=== PATIENT | male | born 1980 ===

== ENCOUNTER 2020-05-29 15:35 | Outpatient (CLI) | payer OTHER, SELFPAY ==
--- NOTE | 2020-05-29 15:41 | XR_ITS ---
WS: [id number] THORACIC SPINE TECHNIQUE: 3 views of the thoracic spine CLINICAL INFORMATION: BACK PAIN DUE TO INJURY COMPARISON: None. FINDINGS: Mild thoracic curve. Mild anterior wedging in the upper thoracic spine at approximately T5, T6, T7. T his is age indeterminate. This can be further evaluated with CT or MRI. No other significant findings . XR/XR thoracic spine 2V 11373 IMPRESSION: 1. Mild compression of the superior endplates at approximately T5-T7. This is age indeterminant but may be chronic. This can be further evaluated with CT or MRI. 2. No other significant findings.
--- NOTE | 2020-05-29 15:41 | XR_ITS ---
WS: [id number] LUMBAR SPINE FLEXION AND EXTENSION TECHNIQUE: 3 views of the lumbar spine: Lateral neutral, flexion, and extension views. CLINICAL INFORMATION: BACK PAIN DUE TO INJURY COMPARISON: None. FINDINGS: Slight retrolisthesis L3 on L4 and L4 on L5. Disc space narrowing worse L5-S1. No instability on flex ion-extension. Disc space narrowing worse L5-S1. XR/XR lumbar spine f/e only [id number] IMPRESSION: No instability on flexion-extension.
== END 2020-05-29 15:36 | disposition home or self-care (01) ==
LOC: RADWPI 15:40
PROVIDERS: PCP Nurse Practitioner Family; Visit Provider Nurse Practitioner Family
DX: M54.6 Pain in thoracic spine (principal); M54.5 Low back pain; S39.92XA Unspecified injury of lower back, initial encounter; X58.XXXA Exposure to other specified factors, initial encounter
CPT/HCPCS: 72070; 72120

== ENCOUNTER 2020-08-13 09:02 | Emergency (ER) | payer OTHER, SELFPAY ==
[2020-08-13 09:18] VITALS: BP 131/91; PULSE 87; RESP 18; TEMP 36.7; O2SAT 99; BMI 21.5
--- NOTE | 2020-08-13 09:40 | ED_ITS ---
HPI - Skin/Abscess/Foreign Bdy General: Chief complaint: Allergic Reaction Stated complaint: DIFFICULTY BREATHING, SUSPECTS ALLERGIC REACTION Time Seen by Provider: 08/13/20 09:25 Source: patient Mode of arrival: ambulatory Limitations: no limitations History of Present Illness: HPI narrative: Patient is a 40-year-old male who presents to ED today along with his significant other for complaints of a pruritic rash that has been present for a few months. Patient tells me he initially noticed the rash on his bilateral dorsal hands. He states since then the rash has spread up his arms, along his flanks, and over his thighs. He states rash is extremely pruritic worse with heat. He has been seen twice for the rash and given steroid creams which are not helping. He has no other physical complaints. Patient was triaged as an allergic reaction stating that he was having difficulty breathing. He states at work the pruritus became so intense that he could feel himself getting worked up . He has absolutely no complaints now of difficulty breathing or trouble swallowing. MD complaint: rash Onset (ago): month(s) Tetanus up to date: yes Location: generalized Quality: pruritic Pain Consistency: constant Relieving factors: none Exacerbating factors: other (heat/shower ) Context: none Associated symptoms: Reports no associated symptoms; Deny chills, fever(s), nausea or vomiting Treatments prior to arrival: corticosteroid Review of Systems Const: Denies: fever(s) or chills Eyes: Denies: change in vision ENMT: Denies: throat pain Card: Denies: chest pain Resp: Denies: dyspnea GI: Denies: nausea or vomiting Musc: Denies: neck pain Skin/Breast: Reports: rash and pruritus Neuro: Denies: headache(s), numbness in extremities, weakness in extremities, sensory changes or dizziness PFSH ED PFSH: Social History Smoking and tobacco status: current every day smoker Physical Exam Const: COMMON NORMALS: no acute distress, average body habitus, patient oriented x3, no limitations, healthy appearing, alert and well nourished GEN ERAL APPEARANCE: cooperative ORIENTATION/CONSCIOUSNESS: Yes awake, Yes oriented to person, Yes oriented to place and Yes oriented to time HENMT: COMMON NORMALS: normocephalic and atraumatic HEAD & SCALP: normocephalic and atraumatic MOUTH: Normal oral and palatal mucosa present, lip normal, tongue normal and other (no angioedema) Resp: COMMON NORMALS: normal respiratory effort and clear to auscultation bilaterally AUSCULTATION: clear to auscultation bilaterally Cardio: COMMON NORMALS: regular rate and regular rhythm RATE: regular rate RHYTHM: regular rhythm Extremity: COMMON NORMALS: normal to inspection Neuro: COMMON NORMALS: patient oriented x3 SENSORIUM/ORIENTATION: Yes alert, Yes oriented to person, Yes oriented to place and Yes oriented to time Skin: NARRATIVE SKIN EXAM: patient has excoriated lesion to bilateral dorsal hands; lesions do seem to track up his forearms; he has newer more papular like lesions to bilateral lateral abdomen; he has more excoriated lesions to bilateral posterior thighs Course Vital Signs: Vital signs: Vital Signs Temperature 98.1 F 08/13/20 09:18 Pulse Rate 87 08/13/20 09:18 Respiratory Rate 18 08/13/20 09:18 Blood Pressure 131/91 08/13/20 09:18 Pulse Oximetry 99 08/13/20 09:18 MDM - Skin/Abscess/Foreign Bdy 2 MDM Narrative: Medical decision making narrative: Lesions and pts history are suspicious for scabies. Will go ahead and try treatment of permethrin and monitor for results. Recommend re-evaluation in 2 weeks if no improvement. Return to ED precautions given. Discharge Plan Discharge Patient Disposition: Home Clinical Impression: Scabies Condition: Stable Prescriptions: New permethrin 5 % cream 1 applic topical Q14D Qty: 60 RF: 1 Discharge Orders: Discharge ED (Routine); Ordered 08/13/20 Ordered By: Ashley Vázquez Referrals: Lorrie Toledo NP [Primary Care Provider] - Patient Instructions: Scabies (ED), Scabies - Adult Coding Level of Care Code ED Case Resolution Specialist for Morteza Yip
[2020-08-13 10:01] VITALS: RESP 18; TEMP 36.7; O2SAT 99
[2020-08-13 10:18] VITALS: BP 125/85; PULSE 88; RESP 18; TEMP 36.7; O2SAT 99
== END 2020-08-13 10:02 | disposition home or self-care (01) ==
PROVIDERS: Emergency Provider Physician Assistant; PCP Nurse Practitioner Family
DX: B86 Scabies (principal); F17.210 Nicotine dependence, cigarettes, uncomplicated
CPT/HCPCS: 99281

== ENCOUNTER 2020-10-04 15:16 | Outpatient (CLI) | payer OTHER, SELFPAY ==
--- NOTE | 2020-10-04 15:23 | XR_ITS ---
WS: [id number] LUMBAR SPINE TECHNIQUE: 3 views of the lumbar spine CLINICAL INFORMATION: LUMBAR PAIN COMPARISON: None. FINDINGS: Five [id number] lumbar vertebral bodies. Mild lumbar curve convex right. Disc space narrowing wo rse L5-S1. Chronic anterior wedging L5 unchanged since May 29, 2020. Mild facet arthropathy L5-S1 . Vascular calcification. XR/XR lumbar spine 2-3V* [id number] IMPRESSION: 1. Mild lumbar curve convex right. 2. Disc space narrowing worse L5-S1. 3. Mild facet arthropathy L5-S1. 4. No significant changes since May 29, 2020
== END 2020-10-04 15:17 | disposition home or self-care (01) ==
PROVIDERS: PCP Nurse Practitioner Family; Visit Provider Registered Nurse
DX: M54.5 Low back pain (principal)
CPT/HCPCS: 72100

== ENCOUNTER 2021-04-24 16:25 | Emergency (ER) | payer SELFPAY ==
[2021-04-24 16:37] VITALS: BP 134/84; PULSE 90; RESP 16; TEMP 36.4; O2SAT 99
[2021-04-24 16:51] VITALS: BP 134/84; PULSE 90; RESP 16; O2SAT 100
--- NOTE | 2021-04-24 17:10 | XRR_ITS ---
PROCEDURE INFORMATION: Exam: XR Left Hand Exam date and time: 04/24/2021 5:10 PM Age: 40 years old Clinical indication: Injury or trauma; Other: Dog bite; Hand; Left TECHNIQUE: Imaging protocol: XR Left hand. Views: 3 or more views. COMPARISON: No relevant prior studies available. FINDINGS: Bones/joints: The patient's fingers are partially bent, which can limit evaluation. There is otherwise no evidence for acute fracture. No dislocation. Normal bone mineralization. No joint effusion. Joint spaces are maintained. Soft tissues: No soft tissue swelling. No radiopaque foreign body. XR/XR hand LT min 3V* [id number] IMPRESSION: The patient's fingers are partially bent, which can limit evaluation. There is otherwise no evidence for acute fracture. Followup imaging recommended in 7-14 days if clinical concern for fracture persists.
[2021-04-24] MEDS: tetanus-dipt-pertussis 0.5 mL SDV IM (17:16)
--- NOTE | 2021-04-24 17:16 | W.ED.ANIMALB ---
HPI - Animal Bite General: Chief Complaint: Animal Bite Stated Complaint: L HAND INJURY Time Seen by Provider: 04/24/21 17:11 History of Present Illness: HPI narrative: Patient complains left hand injury dog bite earlier today. Patient says dog clamped on his fingers and he pulled his fingers out of the mouth and has fingers apart since then. Rabies is up to date on vaccination for the dog. Patient is in need of tetanus update. MD complaint: animal bite Onset (ago): minute(s) Animal: dog Description of animal: household pet Mechanism: bite Location - Extremities: Left: hand Pain description: dull Severity scale (1-10): 4 Context: playing with animal Associated symptoms: Reports no associated symptoms; Deny chills, fever(s) or headache(s) Review of Systems Const: Denies: fever(s), chills or body aches Eyes: Denies: change in vision or blurry vision ENMT: Denies: throat pain or nasal congestion Card: Denies: chest pain or dyspnea on exertion Resp: Denies: dyspnea, productive cough or non-productive cough GI: Denies: abdominal pain, nausea or vomiting : Denies: difficulty urinating Musc: Reports: extremity pain (#3. And #5 fingers of left hand hurt from dog bite earlier today) Skin/Breast: Denies: rash Neuro: Denies: headache(s) Psych: Denies: anxiety or depression Adonay/Lymph: Denies: easy bruising COUNT INCLUDES THE [facility] ED PFSH: Social History Smoking and tobacco status: current every day smoker Physical Exam Const: COMMON NORMALS: no acute distress GENERAL APPEARANCE: cooperative Extremity: LEFT UPPER EXTREMITY: Yes hand & digits (Patient has tenderness #5 finger with touching distal aspect and he complai) Left hand and digits: Yes inspection (Puncture wound top left #4 PIP area no bleeding), Yes palpation (Pain), Yes ROM (Decreased) and Yes other (Pain to flexor tendon base of finger) Psych: COMMON NORMALS: mental status grossly normal ATTITUDE: Yes calm Skin: OTHER: Puncture wound dorsal aspect left #4 finger near the base Course Vital Signs: Vital signs: Vital Signs Temperature 97.6 F 04/24/21 16:37 Pulse Rate 90 04/24/21 16:51 Respiratory Rate 16 04/24/21 16:51 Blood Pressure 134/84 04/24/21 16:51 Pulse Oximetry 100 04/24/21 16:51 Discharge Plan Discharge Prescriptions: No Action prednisone 20 mg tablet See Rx Instructions PO DAILY 11 Days Qty: 19 RF: 0 Coding Level of Care Code ED Qualification Engineer for Morteza Yip
[2021-04-24] MEDS: cephALEXin 500 mg Capsule PO (17:50)
== END 2021-04-24 18:25 | disposition home or self-care (01) ==
PROVIDERS: Emergency Provider Nurse Practitioner Family
DX: S61.452A Open bite of left hand, initial encounter (principal); W54.0XXA Bitten by dog, initial encounter; F17.210 Nicotine dependence, cigarettes, uncomplicated; Z23 Encounter for immunization
CPT/HCPCS: 73130; 90471; 90715; 99283

== ENCOUNTER 2021-06-05 16:12 | Emergency (ER) | payer SELFPAY ==
[2021-06-05 16:25] VITALS: BP 148/102; PULSE 82; RESP 16; TEMP 36.8; O2SAT 99
--- NOTE | 2021-06-05 17:54 | ECG_ITS ---
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 Measurements Intervals [place] Rate: 79 P: 53 [place]: 126 QRS: 76 QRSD: 85 T: 62 QT: 334 QTc: 383 Interpretive Statements SINUS RHYTHM No previous ECG available for comparison Electronically Signed On 06-05-2021 21:56:42 COMMERCIAL SHRIMPING CAPTAIN by Rachelle Ortega M.D. [id number]
== END 2021-06-05 21:03 | disposition left against medical advice (07) ==
PROVIDERS: Emergency Provider Family Medicine
DX: Z53.21 Procedure and treatment not carried out due to patient leaving prior to being seen by health care provider (principal)
CPT/HCPCS: 93005

== ENCOUNTER → 2024-02-16 10:20 | Outpatient (BNVA) | payer OTHER, SELFPAY | PROVIDERS: Visit Provider Family Medicine | DX: S99.921A Unspecified injury of right foot, initial encounter (principal); M79.674 Pain in right toe(s); X58.XXXA Exposure to other specified factors, initial encounter | CPT/HCPCS: 73630 ==

== ENCOUNTER 2024-05-14 15:27 | Emergency (ER) | payer SELFPAY ==
[2024-05-14 15:33] VITALS: BP 164/98; PULSE 74; RESP 17; O2SAT 99; BMI 21.5
--- NOTE | 2024-05-14 15:36 | ECG_ITS ---
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 Measurements Intervals [place] Rate: 76 P: 76 [place]: 164 QRS: 79 QRSD: 89 T: 68 QT: 379 QTc: 429 Interpretive Statements SINUS RHYTHM Compared to ECG 06/05/2021 16:24:11 No significant changes Electronically Signed On 05-15-2024 17:12:06 STEWARD RACETRACK by Prema Washburn M.D. [id number]
--- NOTE | 2024-05-14 15:54 | ED_ITS ---
HPI - SOB/Dyspnea 2 General: Chief Complaint: Shortness of Breath/Dyspnea Stated Complaint: sob Time Seen by Provider: 05/14/24 15:41 History of Present Illness: HPI Narrative: 43-year-old man with no significant past medical history presents emergency room with shortness of breath and fatigue that came on suddenly. thinks he might be having allergic reaction. She says he was drinking with family and had a couple of beers. He then had some sort of flavored drink and shortly after he became very short of breath. Purcell like his throat was closing. No chest pain. Had some nausea but no vomiting. He says he now is breathing better but feels very fatigued. Possibly some mild scattered erythema. No obvious hives. Related Data Previous Rx's Medication Instructions Recorded prednisone 20 mg tablet 60 mg (3 x 20 mg) PO DAILY 5 days 05/14/24 #15 tabs Allergies Allergy/AdvReac Type Severity Reaction Status Date / Time jalapenos Allergy ALGY-Anaphy Uncoded 02/16/24 10:14 laxis Review of Systems 2 Narrative: Constitutional symptoms: Negative except as documented in HPI. Skin symptoms: Negative except as documented in HPI. Eye symptoms: Negative except as documented in HPI. ENMT symptoms: Negative except as documented in HPI. Respiratory symptoms: Negative except as documented in HPI. Cardiovascular symptoms: Negative except as documented in HPI. Gastrointestinal symptoms: Negative except as documented in HPI. Genitourinary symptoms: Negative except as documented in HPI. Musculoskeletal symptoms: Negative except as documented in HPI. Neurologic symptoms: Negative except as documented in HPI. Psychiatric symptoms: Negative except as documented in HPI. Endocrine symptoms: Negative except as documented in HPI. PFSH ED 2 PFSH: Social History Smoking and tobacco/nicotine status: current every day tobacco/nicotine user Physical Exam 2 Narrative: EXAM NARRATIVE: General: Alert, no acute distress. Skin: Warm, dry. Head: Normocephalic, atraumatic. Neck: Supple, trachea midline. Eye: Extraocular movements are intact. Ears, nose, mouth and throat: mucosa moist. Cardiovascular: Regular, Normal peripheral perfusion. Respiratory: Lungs are clear to auscultation, respirations are non-labored, breath sounds are equal, Symmetrical chest wall expansion. Gastrointestinal: Soft, Nontender, Non distended Musculoskeletal: Normal ROM, no deformity. Neurological: Alert and oriented, No focal neurological deficit observed. Psychiatric: Cooperative, appropriate mood & affect. Course 2 Vital Signs: Vital signs: Vital Signs Pulse Rate 71 05/14/24 16:06 Respiratory Rate 16 05/14/24 16:06 Blood Pressure 151/94 05/14/24 16:06 Pulse Oximetry 99 05/14/24 16:06 Oxygen Delivery Me thod Room Air 05/14/24 16:06 MDM - SOB/Dyspnea Medical Decision Making Medical decision making: Differential diagnosis including but not limited to and based on the above HPI, review of systems and physical exam: In a patient with complaints of allergic reaction have concern for anaphylaxis, medication reactions and viral reactions. Orders placed to evaluate differential diagnosis based on the above differential, HPI and physical exam EKG: Time 1536. Rate 76. Normal sinus rhythm, No ST-T changes, no ectopy, normal MA & QRS intervals, This was reviewed and interpreted by myself the ER physician at 1540. Lab Review: Laboratory results were reviewed and interpreted by myself the emergency room physician. Lab work is fairly unremarkable. Other than alcohol level is 90. Lactic acid is slightly elevated at 4 which is likely secondary to the alcohol metabolism. I reviewed the patient's medical record. Reexamination: Patient is quite a bit improved. Assessment and plan: Allergic reaction ?Solu-Medrol, Benadryl and Pepcid in the emergency room - Discharged home - Discussed plan with patient. Answered any questions. - Evaluation and treatment of this problem were appropriate in the emergency setting. Lab Data 05/14/24 16:02 05/14/24 16:02 Labs/Radiology: Laboratory Results WBC 9.08 10^3/uL (3.29-11.43) 05/14/24 16:02 RBC 5.23 10^6/uL (3.85-5.65) 05/14/24 16:02 Hgb 16.80 g/dL (11.27-16.99) 05/14/24 16:02 Hct 47.9 % (37-53) 05/14/24 16:02 MCV 91.6 fl (82-101) 05/14/24 16: MCH 32.1 pg (27-33) 05/14/24 16: MCHC 35.1 g/dL (30-55) 05/14/24 16:02 RDW 12.0 % (12.1-15.1) L 05/14/24 16:02 Plt Count 252 10^3/cmm (157-399) 05/14/24 16:02 MPV 10.1 fL (7.4-10.4) 05/14/24 16:02 Neut % (Auto) 53.0 % 05/14/24 16:02 Lymph % (Auto) 38.8 % 05/14/24 16:02 [place] % (Auto) 6.5 % 05/14/24 16:02 Eos % (Auto) 1.1 % 05/14/24 16:02 Baso % (Auto) 0.4 % 05/14/24 16:02 Neut # (Auto) 4.81 10^3/uL (1.8-7.7) 05/14/24 16:02 Lymph # (Auto) 3.5 10^3/uL (0.8-4.8) 05/14/24 16:02 [place] # (Auto) 0.6 10^3/uL (0.2-0.9) 05/14/24 16:02 Eos # (Auto) 0.1 10^3/uL (0.0-0.8) 05/14/24 16:02 Baso # (Auto) 0.0 10^3/uL (0.0-0.1) 05/14/24 16:02 Nucleated RBC % (auto) 0 % 05/14/24 16:02 Nucleated RBCs # 0.0 /100WBC 05/14/24 16:02 Sodium 139 mmol/L (136-145) 05/14/24 16:02 Potassium 3.0 mmol/L (3.5-5.1) L 05/14/24 16:02 Chloride 92 mmol/L (98-107) L 05/14/24 16:02 Carbon Dioxide 21 mmol/L (22-29) L 05/14/24 16:02 Anion Gap 29.0 (5-19) H 05/14/24 16:02 BUN 11 mg/dL (6-20) 05/14/24 16:02 Creatinine 0.7 mg/dL (0.7-1.2) 05/14/24 16:02 GFR Calculation 122.0 mL/min (90-130) 05/14/24 16:02 Glucose 52 mg/dL (65-115) L 05/14/24 16:02 Calculated Osmolality 285 mOsm/kg (285-295) 05/14/24 16:02 Lactic Acid 4.0 mmol/L (0.5-2.2) H 05/14/24 16:02 Calcium 9.4 mg/dL (8.5-10.5) 05/14/24 16:02 Total Bilirubin 0.3 mg/dL (0.15-1.2) 05/14/24 16:02 AST 17 U/L (0-40) 05/14/24 16:02 ALT 12 U/L (0-41) 05/14/24 16:02 Alkaline Phosphatase 105 U/L (40-130) 05/14/24 16:02 Total Protein 7.2 g/dL (6.6-8.7) 05/14/24 16:02 Albumin 4.4 g/dL (3.5-5.2) 05/14/24 16:02 Globulin 2.8 g/dL (1.3-4.6) 05/14/24 16:02 Urine Color Yellow (Yellow) 05/14/24 16:10 Urine Appearance Clear (CLEAR) 05/14/24 16:10 Urine pH 5.5 (5-7) 05/14/24 16:10 Ur Specific [place] 1.004 (1.005-1.030) L 05/14/24 16:10 Urine Protein Negative (Negative) 05/14/24 16:10 Urine Glucose (UA) Negative (Normal) 05/14/24 16:10 Urine Ketones Negative (Negative) 05/14/24 16:10 Urine Blood Negative (Negative) 05/14/24 16:10 Urine Nitrate Negative (Negative) 05/14/24 16:10 Urine Bilirubin Negative (Negative) 05/14/24 16:10 Urine Urobilinogen 0.2 mg/dL (Negative) 05/14/24 16:10 Ur Leukocyte Esterase Negative (Negative) 05/14/24 16:10 Urine RBC 0-2 /hpf (0-2) 05/14/24 16:10 Urine WBC 0-5 /hpf (0-5) 05/14/24 16:10 Ur Squamous Epith Cells 0-5 /hpf (0-5) 05/14/24 16:10 Amorphous Sediment Not Reportable 05/14/24 16:10 Urine Bacteria None seen /hpf (NONE) 05/14/24 16:10 Hyaline Casts 0-4 /lpf H 05/14/24 16:10 Urine Opiates Screen Negative ng/mL (Negative) 05/14/24 16:10 Ur Barbiturates Screen Negative ng/mL (Negative) 05/14/24 16:10 Ur Phencyclidine Scrn Negative ng/mL (Negative) 05/14/24 16:10 Ur Amphetamines Screen Negative ng/mL (Negative) 05/14/24 16:10 U Benzodiazepines Scrn Negative ng/mL (Negative) 05/14/24 16:10 Urine Cocaine Screen Negative ng/mL (Negative) 05/14/24 16:10 U Marijuana (THC) Screen Positive ng/mL (Negative) H 05/14/24 16:10 Ethyl Alcohol 90 mg/dL (0-10) H 05/14/24 16:02 All radiology interpretation(s) finalized by discharge Discharge Plan Discharge Patient Disposition: Home Clinical Impression: Allergic reaction Condition: Stable Prescriptions: New prednisone 20 mg tablet 60 mg PO DAILY 5 Days Qty: 15 0RF Discharge Orders: Discharge ED (Routine); Ordered 05/14/24 Ordered By: Millie Packer Discharge Diet: Usual diet Discharge Activity: Increase activity as tolerated Patient Instructions: General Allergic Reaction (ED), Opioid Safety, Pain Management Activity Restrictions/Additional Instructions: Thank you for choosing [facility] for your healthcare needs today. Please realize this is an emergency room and that we are providing you with a medical screening exam and this may not be complete and all inclusive of all the testing and or work up that you may need to determine your ailment or severity of your illness. You have been screened and evaluated and felt safe for discharge. Health conditions do change or evolve sometimes and as such it is important that you follow up with your Primary Doctor to be re checked, 3-5 days is a general good time frame for follow up. You are always welcome to return to the ED for re assessment if your symptoms are worsening or you have new concerns Coding Level of Care Code ED Data Processing Specialist for Morteza Yip
[2024-05-14] MEDS: diphenhydrAMINE 50 mg/mL SDV 1mL 25 MG IVP (15:56)
[2024-05-14] MEDS: methylPREDNISolone sod succ 125 mg/2 mL INJ IVP (15:57)
[2024-05-14] MEDS: famotidine 20 mg/2 mL INJ 40 MG IVP (16:04)
[2024-05-14 16:06] VITALS: BP 151/94; PULSE 71; RESP 16; O2SAT 99
[2024-05-14 16:11] LABS: Basophils % 0.4 %; Eosinophils # 0.1 10^3/uL (0.0-0.8); Eosinophils % 1.1 %; Hematocrit 47.9 % (37-53); Lymphocytes # 3.5 10^3/uL (0.8-4.8); Lymphocytes % 38.8 %; Mean Corpuscular HGB Conc 35.1 g/dL (30-55); Mean Corpuscular Hemoglobin 32.1 pg (27-33); Mean Corpuscular Volume 91.6 fl (82-101); Mean Platelet Volume 10.1 fL (7.4-10.4); Monocytes # 0.6 10^3/uL (0.2-0.9); Monocytes % 6.5 %; Neutrophils # 4.81 10^3/uL (1.8-7.7); Nucleated Red Blood Cells % 0 %; Platelet Count 252 10^3/cmm (157-399); Red Blood Count 5.23 10^6/uL (3.85-5.65); White Blood Count 9.08 10^3/uL (3.29-11.43)
[2024-05-14 16:15] LABS: Bilirubin Urine Negative (Negative); Blood Urine Negative (Negative); Glucose Urine UA Negative (Normal); Ketones Urine Negative (Negative); Leukocyte Esterase Urine Negative (Negative); Nitrate Urine Negative (Negative); Protein Urine Negative (Negative); Specific Gravity, Urine 1.004 (1.005-1.030); Urine Appearance Clear (CLEAR); Urine Color Yellow (Yellow); Urobilinogen Urine 0.2 mg/dL (Negative); pH Urine 5.5 (5-7)
[2024-05-14 16:20] LABS: Bacteria Urine None Seen /hpf; Hyaline Casts Urine 0-4 /lpf; RBC Urine 0-2 /hpf (0-2); Squamous Epithelial Cell Urine 0-5 /hpf (0-5); WBC Urine 0-5 /hpf (0-5)
[2024-05-14 16:22] LABS: Amphetamines Screen Urine Negative (Negative); Barbiturates Screen Urine Negative (Negative); Benzodiazepines Screen Urine Negative (Negative); Cocaine Screen Urine Negative (Negative); Opiate Screen Urine Negative (Negative); PCP Screen Urine Negative (Negative); THC Screen Urine Positive (Negative)
[2024-05-14 16:27] LABS: Alanine Aminotransferase 12 U/L (0-41); Albumin Level 4.4 g/dL (3.5-5.2); Alcohol Level 90 mg/dL (0-10); Alkaline Phosphatase 105 U/L (40-130); Aspartate Amino Transferase 17 U/L (0-40); Blood Urea Nitrogen 11 mg/dL (6-20); Calcium 9.4 mg/dL (8.5-10.5); Carbon Dioxide 21 mmol/L (22-29); Chloride 92 mmol/L (98-107); Creatinine Clr Calc Pharmacy 133.8588; Globulin 2.8 g/dL (1.3-4.6); Glucose 52 mg/dL (65-115); Osmolality Calculated 285 mOsm/kg (285-295); Sodium 139 mmol/L (136-145); Total Bilirubin 0.3 mg/dL (0.15-1.2); Total Protein 7.2 g/dL (6.6-8.7)
[2024-05-14] MEDS: ondansetron 2 mg/ML SDV 2 mL 8 MG IVP (16:34)
[2024-05-14 16:53] VITALS: BP 139/89; PULSE 74; O2SAT 98
[2024-05-14 17:53] LABS: Reflex Lactate Order REFLEX LACTIC ORDERD
== END 2024-05-14 16:57 | disposition home or self-care (01) ==
PROVIDERS: Emergency Provider Emergency Medicine
DX: T78.40XA Allergy, unspecified, initial encounter (principal); Z72.0 Tobacco use; X58.XXXA Exposure to other specified factors, initial encounter
CPT/HCPCS: 80053; 80306; 80307; 81001; 83605; 85025; 93005; 96374; 96375; 99285; J1200; J2405; J2919; J3490

== ENCOUNTER → 2024-12-13 08:00 | Outpatient (BNVA) | payer OTHER, SELFPAY | DX: Z76.89 Persons encountering health services in other specified circumstances (principal) | CPT/HCPCS: 80053; 80061; 83036; 85025 ==

== ENCOUNTER 2025-01-10 09:15 | Outpatient (CLI) | payer OTHER, SELFPAY ==
--- NOTE | 2025-01-10 09:19 | XR_ITS ---
WS: [id number] Right hand, 3 views, 01/10/2025 Clinical Data: rigt wirst pain after crush injury Comparison: None. Findings: No fractures or dislocations are seen. The soft tissues are unremarkable. The joint spaces are normal XR/XR hand RT min 3V* [id number] Impression: Negative right hand.
--- NOTE | 2025-01-10 09:19 | XR_ITS ---
WS: [id number] Right wrist, 3 views, 01/10/2025 Clinical Data: pain after crush injury Comparison: None. Findings: No fractures or dislocations are seen. The carpal bones are intact. There is no soft tissue swelling. The distal radius and ulna are not remarkable. XR/XR wrist RT min 3V* [id number] Impression: Negative right wrist.
== END 2025-01-10 09:16 | disposition home or self-care (01) ==
LOC: RAD 09:16
DX: M25.531 Pain in right wrist (principal); S67.31XA Crushing injury of right wrist, initial encounter; W23.0XXA Caught, crushed, jammed, or pinched between moving objects, initial encounter
CPT/HCPCS: 73110; 73130

== ENCOUNTER → 2025-02-13 08:57 | Outpatient (BNVA) | payer OTHER, SELFPAY | PROVIDERS: Visit Provider Nurse Practitioner | DX: R10.A2 Flank pain, left side (principal); R39.89 Other symptoms and signs involving the genitourinary system | CPT/HCPCS: 81000; 87086 ==

== ENCOUNTER 2025-03-26 16:32 | Outpatient (CLI) | payer OTHER, SELFPAY ==
--- NOTE | 2025-03-26 16:38 | XR_ITS ---
WS: [id number] XR ankle LT min 3V* [id number] REASON FOR EXAM: lt ankle pain FINDINGS: Soft tissue swelling over the lateral malleolus. Bony fragment minimally from the medial apex of the lateral malleolus. Joint spaces intact and well preserved. XR/XR ankle LT min 3V* [id number] IMPRESSION: Lateral collateral ligament avulsion injury.
--- NOTE | 2025-03-26 16:38 | XR_ITS ---
WS: [id number] XR foot LT min 3V* [id number] REASON FOR EXAM: lt foot pain FINDINGS: No acute fracture. Joint spaces of the forefoot, midfoot, and hindfoot are intact and well preserved. XR/XR foot LT min 3V* 51740 IMPRESSION: No acute bone or joint abnormality.
== END 2025-03-26 16:33 | disposition home or self-care (01) ==
LOC: LAB 16:32
PROVIDERS: Visit Provider Pediatrics
DX: M79.672 Pain in left foot (principal)
CPT/HCPCS: 73610; 73630